=== PATIENT | female | born 1960 | race Caucasian/White ===

== ENCOUNTER 2020-07-06 19:22 | Emergency (ER) | payer BC ==
[~2020-07-06] VITALS: Ht 172.7 cm; Wt 56.5 kg
[2020-07-06 19:49] VITALS: BP 110/63
--- NOTE | 2020-07-06 20:55 | NUR ---
PT SEEN AND DC'D BY PROVIDER
== END 2020-07-06 20:56 | disposition home or self-care (01) ==
LOC: ER 19:23
DX: S61.213A Laceration without foreign body of left middle finger without damage to nail, initial encounter (principal); Z88.0 Allergy status to penicillin; W45.8XXA Other foreign body or object entering through skin, initial encounter; Y93.89 Activity, other specified; Y92.89 Other specified places as the place of occurrence of the external cause; Y99.8 Other external cause status
CPT/HCPCS: 12001; 99282

== ENCOUNTER 2025-02-21 12:13 | Emergency (ER) | payer MEDICARE ==
[~2025-02-21] VITALS: Ht 172.7 cm; Wt 57.5 kg
[2025-02-21 12:24] VITALS: TEMP 98
--- NOTE | 2025-02-21 14:19 | RADIOLOGY REPORT ---
ABDOMEN, (KUB) ONE VIEW REASON FOR EXAM: Abdominal pain COMPARISON: None TECHNIQUE: A single view of the abdomen is obtained. FINDINGS: The bowel gas pattern is nonobstructive. The colonic stool burden is moderate. Phleboliths project over the pelvis. There is no supine evidence of pneumoperitoneum. There are degenerative changes in the visualized spine. IMPRESSION: Moderate colonic stool burden. Correlate clinically for constipation.
[2025-02-21 14:22] LABS: MEAN PLATELET VOLUME 8.6 FL (7.4-10.4); RED CELL DISTRIBUTION WIDTH 13.8 % (11.5-14.5)
[2025-02-21 14:41] LABS: CREATININE 0.66 MG/DL (0.40-0.90); TOTAL CARBON DIOXIDE 27.6 MMOL/L (24-32); eCRCL 77 ML/MIN; eGFR 90 ML/MIN
[2025-02-21] MEDS: polyethylene glycol 3350 17gm powd pack PO ONE (15:38)
[2025-02-21 15:40] VITALS: BP 130/82; PULSE 75; RESP 18; O2SAT 98
--- NOTE | 2025-02-21 15:40 | Physician Documentation ---
History of Present Illness ~ Chief Complaint: Constipation Stated Complaint: CONSTIPATION Time Seen by MD: 13:21 HPI This is a very pleasant 64-year-old female that reports to the emergency department for evaluation of constipation x1 week. Patient reports that she is currently passing gas still and she has had minimal bowel movements over the course of the week but not as successful full bowel movement in a week. Patient reports she has tried enemas at home she has tried bulking products at home she has increased her water and tried prunes at home. Patient denies any abdominal pain at this time. Patient denies any fevers chills nausea vomiting at this time. Patient reports that she has significant allergies and and multiple food items in environmental items that cause anaphylaxis including cheese seeds. Patient reports that she feels like she is predisposed to developing constipation sometimes as she can eat small amounts of certain foods that will cause constipation. Patient denies eating any of those foods at this time. Patient denies any other symptoms at this time. Patient appears well here in triage today. Medication Reconciliation Allergies: Coded Allergies: Penicillins (Verified Allergy, Mild, RASH, 02/21/25) nitrofurantoin (Verified Allergy, Unknown, 02/21/25) Uncoded Allergies: ROSANNA SEEDS (Allergy, Severe, BREATHING TROUBLE AND THROAT SWELLING, 07/06/20) Past Medical History Smoking Status: Never smoker Review of Systems ROS As stated above in the HPI, otherwise all systems are reviewed and negative. Physical Exam Vital Signs: Temperature: 98.0, Source: Temporal, Heart Rate: 96, Respiratory Rate: 18, BP: 132/71, Pulse Oximetry: 98, Weight: 57.500 Oxygen Flow Rate: 0 Physical Exam VITALS: Reviewed and as above. GENERAL: Alert, no apparent distress. CV: Regular rate, rhythm, no edema, no murmur, No: JVD GI: Soft, non-tender, bowels sounds present, no rebound, guarding, or rigidity BACK: No CVA tenderness, or swelling MUSCULOSKELETAL No deformities, no edema SKIN: Warm and dry, no rash NEURO: Oriented x4, No motor or sensory deficit PSYCH: Normal mood and affect, no agitation Progress Results/Orders Results/Orders Orders - VIRGINIE LANG HEAD GRINDER Abdomen,Single View(Kub) (02/21/25 14:02) Polyethylene Glycol 3350 Pkt (Miralax Pa (02/21/25 21:00) Completed Orders - VIRGINIE LANG HEAD GRINDER Cbc/Diff (02/21/25 14:02) CMP (02/21/25 14:02) Abdomen,Single View(Kub) (02/21/25 14:02) Vital Signs 02/21/25 12:24 Temp 98.0 Pulse 96 Resp 18 B/P (MAP) 132/71 Pulse Ox 98 O2 Flow Rate 0 Laboratory Tests Test 02/21/25 14:13 White Blood Count 3.8 L Red Blood Count 4.39 Hemoglobin 13.1 Hematocrit 39.1 Mean Corpuscular Volume 88.9 Mean Corpuscular Hemoglobin 29.8 Mean Corpuscular Hemoglobin Concent 33.5 Red Cell Distribution Width 13.8 Platelet Count 198 Mean Platelet Volume 8.6 Neutrophils (%) (Auto) 57.9 Lymphocytes (%) (Auto) 31.0 Monocytes (%) (Auto) 7.1 Eosinophils (%) (Auto) 3.1 Basophils (%) (Auto) 0.9 Neutrophils # (Auto) 2.2 Lymphocytes # (Auto) 1.2 Monocytes # (Auto) 0.3 Eosinophils # (Auto) 0.1 Basophils # (Auto) 0.0 CBC Comment Sodium Level 137 Potassium Level 3.9 Chloride Level 101 Carbon Dioxide Level 27.6 Anion Gap 8 Blood Urea Nitrogen 9 Creatinine 0.66 Estimated GFR/1.73 m2 90 BUN/Creatinine Ratio 13.6 Glucose Level 88 Calcium Level 9.1 Total Bilirubin 0.7 Aspartate Amino Transf (AST/SGOT) 33 Alanine Aminotransferase (ALT/SGPT) 13 Alkaline Phosphatase 57 Total Protein 7.9 Albumin 4.3 Globulin 3.6 Albumin/Globulin Ratio 1.2 Chemistry Comments Medical Decision Making Additional information obtaine: other Findings Chief Complaint: Constipation for one week Medical Decision Making: Number of Diagnoses/Management Options: Moderate complexity Primary diagnosis: Chronic constipation Differential diagnoses considered and excluded: fecal impaction, bowel obstruction, colorectal malignancy Amount/Complexity of Data Reviewed: Moderate complexity Abdominal X-ray reviewed and interpreted: no evidence of obstruction or fecal impaction Laboratory studies reviewed: within normal limits Medication reconciliation performed to identify constipating agents Risk of Complications/Morbidity/Mortality: Low risk Patient is hemodynamically stable with benign abdominal examination No alarm symptoms present (no weight loss, rectal bleeding, or change in stool caliber) Passing flatus, indicating patent bowel Failed outpatient conservative management including enemas, bulking agents, increased fluid intake, and dietary modifications Clinical Assessment and Plan: This 64-year-old female presents with chronic constipation characterized by minimal bowel movements over one week despite conservative measures at home. The patient has no alarm symptoms and maintains the ability to pass gas, making mechanical obstruction unlikely. Physical examination was benign, and imaging confirmed no evidence of obstruction or significant fecal loading. Initial management appropriately included dietary modifications and fiber supplementation, which are considered first-line treatments for constipation. Given the patient's failure to respond to home interventions including enemas and bulking products, escalation of therapy was indicated. In the emergency department, the patient received osmotic and/or stimulant laxatives, which represent appropriate second-line therapy per [employer] guidelines. Osmotic laxatives such as polyethylene glycol and stimulant laxatives such as bisacodyl or senna are safe and effective opt ions for older adults with constipation. Discharge Plan: Continue osmotic laxative therapy (polyethylene glycol 17g daily) with patient- driven titration to achieve soft, formed bowel movements Add stimulant laxative (senna or bisacodyl) as needed if no bowel movement within 2 days Maintain adequate hydration (minimum 6-8 glasses of water daily) Continue dietary fiber intake with goal of 25-30g daily from soluble sources such as psyllium, oats, and fruits Scheduled toileting after meals to utilize gastrocolonic response Avoid straining and prolonged time on toilet Follow-up: Primary care physician within 1 week for reassessment If symptoms persist despite [id number] laxative therapy, consider referral to gastroenterology for evaluation of possible pelvic floor dysfunction or slow transit constipation, which may require specialized testing such as anorectal manometry or colonic transit studies Prescription secretagogues (lubiprostone, linaclotide, plecanatide) or prokinetic agents (prucalopride) may be considered if [id number] therapies fail Patient Education: Counseled on importance of medication compliance and gradual titration Advised to return to emergency department if develops severe abdominal pain, vomiting, inability to pass gas, fever, or rectal bleeding Discussed expected timeline for symptom improvement (typically 1-3 days with osmotic laxatives) Disposition: Discharged home in stable condition with close primary care follow- up arranged. Diff Dx GI Bleed:Consideration: Include: AE fistula, Angiodysplasia, Bleeding diathesis, Blood loss anemia, Carcinoma, Diverticulosis, Diverticulitis, Esophageal varicies, Esophagitis, Gastritis, Gastroenteritis, Inflammatory BD, Jil-Simmons syndrome, Meckel's diverticulum, PUD, Other Diff Dx Pain:Considerations: Include: AAA, -Complete, -Incomplete, -Inevitable, -Missed, -Threatened, Abruptio placentae, Angina/CA, Aortic dissection, Appendicitis, Bowel obstruction, Cholangitis, Cholecystitis, Cholelithasis, Constipation, Diverticular disease, Dysmenorrhea, Ectopic , Esophageal rupture, Esophagitis, Gastritis/PUD, Gastroenteritis, GI hemorrhage, Hernia, Hepatitis, Inflammatory BD, Ischemic bowel, Mass, Ovarian cyst/torsion, Pancreatitis, PID, Porphyria, Trauma, intraabdominal, Urinary obstruction, Urinary tract infection, Urolithiasis, Other Diff Dx N/V/D:Considerations: Include: Appendicitis, Bowel obstruction, Dehydration, DKA, Diarrhea - bacterial, Diarrhea - parasitic, Diarrhea - viral, Diverticulitis, Diverticulosis, Drug toxicity, Electrolyte imbalance, Food poisoning, Gastroenteritis, GE reflux, GI bleed, Hepatitis, Hernia, Hypovolemia, Hypotension, Inflammatory BD, Impaction, Malnutrition, Pancreatitis, , PUD, Renal failure, Urolithiasis, Urinary obstruction, UTI, Other Diff Dx Rectal:Considerations: Include: Fissure, Fistula, Foreign body, Impaction, Perirectal abscess, Rectal prolapse, Subcutaneous abscess, Thrombosed hemorrhoid, Ulcer, UTI, Other Departure Disposition: 01 HOME / SELF CARE / HOMELESS Impression: Primary Impression: Constipation Condition: Stable Discharge Instructions: Constipation, Adult Additional Instructions: Why you came to the emergency department: You came to the emergency department because you have been constipated for one week. You have been passing gas but have not had a complete bowel movement. You tried enemas, fiber products, drinking more water, and eating prunes at home, but these did not help enough. What we found: Your X-rays and blood tests were normal. You do not have a blockage in your intestines. Your constipation is likely related to how your bowels are moving, which is common and can be treated. Treatment you received today: You were given medication in the emergency department to help you have a bowel movement. What to do at home: Lifestyle changes (these are important first steps): Drink plenty of fluids: Aim for 6-8 glasses of water each day Eat more fiber: Try to get 25-30 grams of fiber daily from foods like oat bran, beans, fruits (avoiding seeds due to your allergy), and vegetables Exercise regularly: Walking and staying active helps your bowels move Use the bathroom after meals: Your body naturally wants to have a bowel movement 30 minutes after eating Don't ignore the urge: When you feel like you need to go, go to the bathroom right away Don't strain: Avoid spending too much time on the toilet Medications to take: Polyethylene glycol (MiraLAX): Take 17 grams (one capful) mixed in 8 ounces of liquid once daily. This is a gentle laxative that pulls water into your intestines to soften stool. You can adjust the dose based on your bowel movements. If you don't have a bowel movement within 2 days, add a stimulant laxative like: Senna (Senokot): 2 tablets at bedtime, OR Bisacodyl (Dulcolax): 1-2 tablets at bedtime or 1 suppository Continue these medications until your bowel movements are regular and comfortable Important notes about your allergies: Avoid fiber products that contain seeds (like some psyllium products) Avoid cheese and other foods you know cause problems for you Read labels carefully on any [id number] products When to call your doctor: Contact your primary care doctor within one week to discuss your constipation. If your symptoms don't improve with the medications listed above, your doctor may recommend prescription medications. When to return to the emergency department: Come back to the emergency department right away if you have: Severe abdominal pain Vomiting Unable to pass gas Fever (temperature over 100.4F) Blood in your stool or black, tarry stools No bowel movement for more than 3 days despite taking the medications above Severe bloating or swelling of your belly Follow-up: See your primary care doctor within 1 week Bring a list of all medications you are taking Keep track of your bowel movements so you can discuss what's working and what's not Questions? If you have questions about these instructions, call your primary care doctor's office. Referrals: NO PRIMARY CARE PROVIDER (PCP) Education Educated: Patient Educated regarding: diagnosis, treatment, need for follow up Signature Scribe Signature: A Attestation: Scribed for Virginie Lang by CHAD Wong . 02/21/25 15:43 VIRGINIE LANG Feb 21, 2025 15:40
[2025-02-21] MEDS ORDERED: polyethylene glycol 3350 17gm powd pack PO SCH (21:00)
== END 2025-02-21 15:46 | disposition home or self-care (01) ==
LOC: ER 12:14
DX: K59.00 Constipation, unspecified (principal); Z88.0 Allergy status to penicillin; Z88.1 Allergy status to other antibiotic agents
CPT/HCPCS: 36415; 74018; 80053; 85025; 99284

== ENCOUNTER 2025-03-04 13:20 | Emergency (ER) | payer MEDICARE ==
[~2025-03-04] VITALS: Ht 172.7 cm; Wt 57.5 kg
[2025-03-04 13:30] VITALS: BP 125/67; PULSE 81; RESP 16; O2SAT 99
--- NOTE | 2025-03-04 15:47 | Physician Documentation ---
History of Present Illness ~ Chief Complaint: Constipation Stated Complaint: RECHECK Time Seen by MD: 15:22 HPI 64-year-old female returns to the ED after being seen here in the ED for constipation two weeks ago. She was prescribed MiraLax and Dulcolax without much benefit. He is still passing gas occasionally but reports she only gets relief from a daily enema. States this is not something that has been chronic in nature rather the last few weeks. There has been her diet is very good includes vegetables and various other foods that promote GI motility. Has not any fevers reports pain in her abdomen and lower back Day of Onset: Mar 04, 2025 Medication Reconciliation Allergies: Coded Allergies: Penicillins (Verified Allergy, Mild, RASH, 03/04/25) nitrofurantoin (Verified Allergy, Unknown, 03/04/25) Uncoded Allergies: ROSANNA SEEDS (Allergy, Severe, BREATHING TROUBLE AND THROAT SWELLING, 07/06/20) Review of Systems All Other Systems at this time: Reviewed and Negative Physical Exam Vital Signs: Temperature: 98.9, Source: Temporal, Heart Rate: 81, Respiratory Rate: 16, BP: 125/67, Pulse Oximetry: 99, Weight: 57.500 Oxygen Flow Rate: 0 Progress Results/Orders Results/Orders Orders - NHI MILLER [employer] Ct Abdomen Pelvis (03/04/25 16:00) Completed Orders - NHI MILLER [employer] Ct Abdomen Pelvis (03/04/25 16:00) Magnesium Citrate Oral Tika. (Magnesium C (03/04/25 16:35) Medications Received in ER Medications (Trade) Dose Ordered Sig/Rosa Route PRN Reason Start Time Stop Time Status Last Admin Dose Admin (magnesium citrate oral solution) 296 ml ONCE ONCE PO 03/04/25 16:35 03/04/25 16:36 DC 03/04/25 16:48 296 ML Vital Signs 03/04/25 03/04/25 13:30 17:03 Temp 98.9 98.9 Pulse 81 Resp 16 B/P (MAP) 125/67 Pulse Ox 99 O2 Flow Rate 0 Medical Decision Making Findings A CT findings for this patient were nonspecific and showed no gross abnormalities including no signs of fecal impaction or small-bowel obstruction. This the patient is adamant she is having difficulty defecating. Going to give her a bottle of Mag citrate and have her take at home. Also advised her to type titrate MiraLax to efficacy. More importantly she needs to follow up with [facility] and obtain a referral to get a colonoscopy as she has never had one. Diff Dx GI Bleed:Consideration: Unlikely: AE fistula, Angiodysplasia, Bleeding diathesis, Blood loss anemia, Carcinoma, Diverticulosis, Diverticulitis, Esoph ageal varicies, Esophagitis, Gastritis, Gastroenteritis, Inflammatory BD, Jil-Simmons syndrome, Meckel's diverticulum, PUD, Other Diff Dx Pain:Considerations: Include: AAA, -Complete, - Incomplete, -Inevitable, -Missed, -Threatened, Abruptio placentae, Angina/CT, Aortic dissection, Appendicitis, Bowel obstruction, Chola ngitis, Cholecystitis, Cholelithasis, Constipation, Diverticular disease, Dysmenorrhea, Ectopic , Esophageal rupture, Esophagitis, Gastritis/PUD, Gastroenteritis, GI hemorrhage, Hernia, Hepatitis, Inflammatory BD, Ischemic bowel, Mass, Ovarian cyst/torsion, Pancreatitis, PID, Porphyria, Trauma, intraabdominal, Urinary obstruction, Urinary tract infection, Urolithiasis, Oth er Diff Dx N/V/D:Considerations: Include: Appendicitis, Bowel obstruction, Dehydration, DKA, Diarrhea - bacterial, Diarrhea - parasitic, Diarrhea - viral, Diverticulitis, Diverticulosis, Drug toxicity, Electrolyte imbalance, Food pois oning, Gastroenteritis, GE reflux, GI bleed, Hepatitis, Hernia, Hypovolemia, Hypotension, Inflammatory BD, Impaction, Malnutrition, Pancreatitis, , PUD, Renal failure, Urolithiasis, Urinary obstruction, UTI, Other Diff Dx Rectal:Considerations: Unlikely: Fissure, Fistula, Foreign body, Impaction, Perirectal abscess, Rectal prolapse, Subcutaneous abscess, Thrombosed hemorrhoid, Ulcer, UTI, Other Departure Disposition: 01 HOME / SELF CARE / HOMELESS Impression: Primary Impression: Constipation Condition: Stable Discharge Instructions: Constipation, Adult Referrals: NO PRIMARY CARE PROVIDER (PCP) Signature Scribe Signature: uScribed for Nhi Miller [employer] Aides Teacher by Nhi Williamson NP . 03/04/25 16:35 Attestation: Scribed for Nhi Miller [employer] Aides Teacher by Nhi Williamson NP . 03/04/25 16:37 NHI MILLER NP Mar 04, 2025 15:47
--- NOTE | 2025-03-04 16:13 | RADIOLOGY REPORT ---
CLINICAL HISTORY: comnstipation TECHNIQUE: CT of the abdomen and pelvis was performed without IV contrast. This exam was performed according to our departmental dose optimization program. Up-to-date CT equipment and radiation dose reduction techniques are utilized as appropriate. CTDI 8 DLP 361 COMPARISON: DI ABDOMEN,SINGLE VIEW(KUB) on DOS: 02/21/25 FINDINGS: Abdomen/Pelvis: The spleen, pancreas, adrenal glands, kidneys, gallbladder, and uterus are grossly unremarkable. The bladder is moderately to significantly distended. Is hypodense lesion within the liver is incompletely characterized due to small size and lack of IV contrast. The abdominal aorta is normal in course and caliber. There are no significant atherosclerotic calcifications. There is no free intraperitoneal air. There is trace Nonspecific free fluid in the deep pelvis. There is no enlarged abdominal pelvic lymph node. There is no bowel wall thickening or dilatation. The appendix is normal. Other: The imaged lower thorax is unremarkable. No acute osseous abnormality is evident. IMPRESSION: No acute noncontrast CT abnormality in the abdomen / pelvis. Moderate to significant urinary bladder distention.
[2025-03-04] MEDS: magnesium citrate 296ml oral solution PO ONE (16:48)
[2025-03-04 17:03] VITALS: TEMP 98.9
== END 2025-03-04 17:04 | disposition home or self-care (01) ==
LOC: ER 13:20
DX: K59.00 Constipation, unspecified (principal); Z88.0 Allergy status to penicillin; Z88.8 Allergy status to other drugs, medicaments and biological substances
CPT/HCPCS: 74176; 99284